=== PATIENT | male | born 1990 | race Caucasian/White ===

== ENCOUNTER 2018-01-13 21:44 | Emergency (ER) | payer MEDICAID ==
[~2018-01-13] VITALS: Ht 182.9 cm; Wt 88.9 kg
[~2018-01-13 21:44] MED LIST: Ultram50 MG PO
[2018-01-14] MEDS ORDERED: Zofran Odt4 MG PO (00:47)
[2018-01-14] MEDS ORDERED: IBUP600 PO (00:47)
[2018-01-14] MEDS ORDERED: Norco 5-325 Ta1 EACH PO (00:47)
== END 2018-01-14 01:09 | disposition home or self-care (01) ==
LOC: ER 21:44
DX: S09.90XA Unspecified injury of head, initial encounter (principal); S51.812A Laceration without foreign body of left forearm, initial encounter; S30.810A Abrasion of lower back and pelvis, initial encounter; V89.9XXA Person injured in unspecified vehicle accident, initial encounter
CPT/HCPCS: 12004; 70450; 71046; 72100; 96374; 99285-25; J2405

== ENCOUNTER → 2018-06-15 | Outpatient (CLI) | payer OTHER ==
[~2018-06-15] MED LIST changes: +IBUP600 PO; +Norco 5-325 Ta1 EACH PO; +Zofran Odt4 MG PO
== END | disposition home or self-care (01) ==
LOC: LAB 08:20 → LAB SHORT 08:20
DX: Z51.81 Encounter for therapeutic drug level monitoring (principal); F41.1 Generalized anxiety disorder; F32.2 Major depressive disorder, single episode, severe without psychotic features; Z79.899 Other long term (current) drug therapy
CPT/HCPCS: 80175

== ENCOUNTER 2018-08-30 12:07 | Emergency (ER) | payer OTHER ==
[~2018-08-30] VITALS: Ht 182.9 cm; Wt 89.4 kg
[2018-08-30] MEDS ORDERED: Lamictal150 MG PO (12:20)
[2018-08-30] MEDS ORDERED: PENVK500 PO (12:39)
== END 2018-08-30 13:46 | disposition home or self-care (01) ==
LOC: ER 12:07
DX: K04.7 Periapical abscess without sinus (principal); K02.9 Dental caries, unspecified
CPT/HCPCS: 99283

== ENCOUNTER 2019-11-15 20:53 | Emergency (ER) | payer OTHER ==
[~2019-11-15] VITALS: Ht 182.9 cm; Wt 80.7 kg
[~2019-11-15 20:53] MED LIST changes: +IBUP800 PO; +Lamictal150 MG PO; +PENVK500 PO
[2019-11-15] MEDS ORDERED: Cymbalta30 MG (21:17)
[2019-11-15] MEDS ORDERED: LORAZEPAM0.5 MG PO (21:18)
[2019-11-15 21:38] LABS: BASOPHILS ABSOLUTE AUTO 0.02 K/mm3 (0.00-0.23); BASOPHILS PERCENT AUTO 0 % (0-2); EOSINOPHILS ABSOLUTE AUTO 0.08 K/mm3 (0.00-0.68); EOSINOPHILS PERCENT AUTO 1 % (0-6); Hematocrit 43.5 % (37.0-53.0); Hemoglobin 14.2 g/dL (13.5-17.5); IMMATURE GRAN ABSOLUTE AUTO 0.01 K/mm3 (0.00-0.10); IMMATURE GRAN PERCENT AUTO 0 % (0-1); LYMPHOCYTES ABSOLUTE AUTO 2.34 K/mm3 (0.84-5.20); LYMPHOCYTES PERCENT AUTO 32 % (21-46); MONOCYTES ABSOLUTE AUTO 0.61 K/mm3 (0.16-1.47); MONOCYTES PERCENT AUTO 8 % (4-13); Mean Corpuscular HGB 28.3 pg (26.0-34.0); Mean Corpuscular HGB Conc 32.6 g/dL (31.5-36.5); Mean Corpuscular Volume 87 fL (80-100); Mean Platelet Volume 10.6 fL (9.1-12.4); NEUTROPHILS ABSOLUTE AUTO 4.27 K/mm3 (1.96-9.15); NEUTROPHILS PERCENT AUTO 58 % (41-73); Platelet Count 259 K/mm3 (150-400); RDW Coefficient Variation 12.9 % (11.7-14.2); RDW Standard Deviation 41.1 fL (35.1-46.3); Red Blood Cell Count 5.01 M/mm3 (4.30-5.90); White Blood Cell Count 7.33 K/mm3 (4.00-11.30)
[2019-11-15 21:57] LABS: Alanine Aminotransfer (ALT/SGP 27 U/L (12-78); Albumin, Blood 4.7 g/dL (3.4-5.0); Albumin/Globulin Ratio 1.5 (0.8-1.8); Alk Phos 80 U/L (50-136); Anion Gap 3 mmol/L (6-16); Aspartate Aminotrans (AST/SGOT 15 U/L (12-37); Bilirubin, Total 0.6 mg/dL (0.1-1.0); Blood Urea Nitrogen 16 mg/dL (8-24); Bun/Creatinine Ratio 14.3 (12.0-20.0); CO2, Blood 30 mmol/L (21-32); Chloride, Blood 108 mmol/L (98-108); Creatinine, Blood 1.12 mg/dL (0.60-1.20); Globulin, Blood 3.1 g/dL (2.2-4.0); Glomerular Filtration Rate >60 (60-); Glucose, Blood 94 mg/dL (70-99); Potassium, Blood 3.8 mmol/L (3.5-5.5); Sodium, Blood 141 mmol/L (136-145); Total Protein, Blood 7.8 g/dL (6.4-8.2)
== END 2019-11-15 22:55 | disposition home or self-care (01) ==
LOC: ER 20:53
PROVIDERS: Physician Assistant
DX: R55 Syncope and collapse (principal); I49.9 Cardiac arrhythmia, unspecified; F32.9 Major depressive disorder, single episode, unspecified; F41.9 Anxiety disorder, unspecified; F17.220 Nicotine dependence, chewing tobacco, uncomplicated; Z79.899 Other long term (current) drug therapy
CPT/HCPCS: 36415; 80053; 85025; 93005; 93010; 99284-25

== ENCOUNTER 2019-11-18 15:46 | Emergency (ER) | payer OTHER ==
[~2019-11-18] VITALS: Ht 182.9 cm; Wt 80.7 kg
[~2019-11-18 15:46] MED LIST changes: +Cymbalta30 MG; +LORAZEPAM0.5 MG PO
== END 2019-11-18 17:11 | disposition home or self-care (01) ==
LOC: ER 15:46
DX: R55 Syncope and collapse (principal); R42 Dizziness and giddiness; F41.9 Anxiety disorder, unspecified; F32.9 Major depressive disorder, single episode, unspecified; E55.9 Vitamin D deficiency, unspecified; Z86.14 Personal history of Methicillin resistant Staphylococcus aureus infection; Z79.899 Other long term (current) drug therapy; F17.220 Nicotine dependence, chewing tobacco, uncomplicated
CPT/HCPCS: 99283